=== PATIENT | female | born 1995 | race Caucasian/White ===

== ENCOUNTER 2021-08-16 17:12 | Emergency (ER) | payer OTHER, SELFPAY ==
[2021-08-16 17:28] VITALS: BP 128/88; PULSE 80; RESP 16; TEMP 36.9; O2SAT 98
--- NOTE | 2021-08-16 17:53 | ED.URI ---
HPI - URI/Sore Throat General Chief Complaint: Upper Respiratory Infection Stated Complaint: Cough/Chest Congestion Time Seen by Provider: 08/16/21 17:53 Source: patient History of Present Illness HPI Narrative: patient presents with cough and chest congestion. no shortness of breath and no chest pain. Patient reprots using her sones nebulizer treatment at home for cough and chest congestion. Patient states her symptoms started after she took her children trick or treating. no fever no uri symptoms. MD elicited complaint: cough Related Data Allergies Allergy/AdvReac Type Severity Reaction Status Date / Time No Known Allergies Allergy Verified 08/16/21 17:31 Review of Systems Review of Systems: CONSTITUTIONAL: Denies fever, chills, or sweats. EYES: Denies visual changes, redness, or discharge. ENT: Denies rhinorrhea, congestion, sore throat, or otalgia. CARDIOVASCULAR: Denies chest pain, palpitations, or edema. RESPIRATORY: Denies cough or dyspnea. GASTROINTESTINAL: Denies abdominal pain, nausea, vomiting, or diarrhea. GENITOURINARY: Denies dysuria or hematuria. SKIN: Denies rash or itching. MUSCULOSKELETAL: Denies back pain, joint pain, or myalgia. NEUROLOGIC: Denies headache, numbness, or weakness. PSYCHIATRIC: Denies anxiety or depression. PMFSH Comments At time of signature, agree with nursing past medical, surgical, social and family history. There is no relevant family history pertinent to the presenting complaint Exam Narrative: GENERAL: Well-appearing, well-nourished, and in no acute distress. HEAD: Normocephalic, atraumatic. EYES: PERRLA and EOMI. ENT: Nares clear, no rhinorrhea or epistaxis. Mucous membranes moist. NECK: Supple. CHEST: Clear to auscultation. No respiratory distress. HEART: Regular rate and rhythm. No murmur heard. Normal peripheral pulses. ABDOMEN: Soft, nontender, nondistended, normal active bowel sounds. EXTREMITIES: Normal range of motion. No edema. SKIN: Warm, dry, no rash. NEURO: No focal deficits. Alert and oriented x3. Kim Coma Scale Eye Opening: Spontaneous 4 [employer] Coma Scale Motor: Obeys Commands 6 Kim Coma Scale Verbal: Oriented 5 Kim Coma Scale Total 15 Course Vital Signs Vital signs: Vital Signs Temperature 36.9 C 11/06/21 17:28 Pulse Rate 80 08/16/21 17:28 Respiratory Rate 16 08/16/21 17:28 Blood Pressure 128/88 08/16/21 17:28 Pulse Oximetry 98 08/16/21 17:28 Temperature 36.9 C 08/16/21 17:28 Pulse Rate 80 08/16/21 17:28 Respiratory Rate 16 08/16/21 17:28 Blood Pressure 128/88 08/16/21 17:28 Pulse Oximetry 98 08/16/21 17:28 patient feels much better after nebulizer treatment. good breath sound sthroughout MDM - URI/Sore Throat Differential Diagnosis Differential diagnosis: Likely upper respiratory infection, croup, otitis media, sinusitis, viral infection, bronchitis, influenza and pharyngitis Critical Care Time Critical Care Time Critical Care Time: No Discharge Plan Discharge Clinical Impression: Bronchitis Patient Disposition: Home, Self-Care Condition: Stable Instructions: Antibiotic Form, Acute Bronchitis (ED) Additional Instructions: Increase fluids and rest 1. Bronchitis will generally resolve on it's own and may take a few weeks. Bronchitis is usually caused by a virus, but sometimes it may be bacterial. Antibiotics generally do not help bronchitis go away faster. Yellow or green mucous, does not always mean bacterial. If you are prescribed an antibiotic for your symptoms be sure to take the entire course of antibioitics. Take with food. It is also suggested to take with yogurt or a probiotic to decrease GI side effects. You may also be prescribed a steroid, if so, be sure to take entire course, first thing in the morning with food. 2. Rest and drink lots of fluids. Maintain a good diet, with foods rich in vitamins and minerals, and lots of fruits and vegetables. 3. Drinking hot tea,
[2021-08-16] MEDS: ALBUTEROL SULFATE NEB 2.5 MG/3 ML INH INHALATION (18:03)
== END 2021-08-16 18:18 | disposition home or self-care (01) ==
PROVIDERS: Emergency Provider Nurse Practitioner Family; PCP Physician Assistant
DX: J40 Bronchitis, not specified as acute or chronic (principal); J45.909 Unspecified asthma, uncomplicated
CPT/HCPCS: 94640; 99213; G0463

== ENCOUNTER 2021-10-12 17:46 | Emergency (ER) | payer OTHER, SELFPAY ==
[2021-10-12 17:54] VITALS: BP 120/72; PULSE 89; RESP 14; TEMP 36.9; O2SAT 100
--- NOTE | 2021-10-12 19:06 | ED.EAR ---
HPI - Ear Problem General Chief complaint: Ear Stated complaint: ear pressure Time Seen by Provider: 10/12/21 19:06 Source: patient, RN notes reviewed and old records reviewed Mode of arrival: ambulatory Limitations: no limitations History of Present Illness HPI Narrative: 25 year old female who prsents to express care with complaints of 3 day history of left ear pressure with decrease hearing. Patient states that she has not had any fevers chills or sweats or any sore throat denies any body aches. Patient reports that she has been taking some Tylenol for her symptoms. Patient has not had COVID or flu vaccinations. MD Complaint: ear pain and decreased hearing Location: left ear Related Data Home Medications Medication Instructions Recorded Confirmed buspirone 15 mg PO DAILY 10/12/21 10/12/21 citalopram 20 mg PO DAILY 10/12/21 10/12/21 risperidone 1 mg PO DAILY 10/12/21 10/12/21 Allergies Allergy/AdvReac Type Severity Reaction Status Date / Time No Known Allergies Allergy Verified 10/12/21 17:57 Review of Systems Review of Systems: CONSTITUTIONAL: Denies fever, chills, or sweats. EYES: Denies visual changes, redness, or discharge. ENT: Denies rhinorrhea, congestion, sore throat, left otalgia. CARDIOVASCULAR: Denies chest pain, palpitations, or edema. RESPIRATORY: Denies cough or dyspnea. GASTROINTESTINAL: Denies abdominal pain, nausea, vomiting, or diarrhea. GENITOURINARY: Denies dysuria or hematuria. SKIN: Denies rash or itching. MUSCULOSKELETAL: Denies back pain, joint pain, or myalgia. NEUROLOGIC: Denies headache, numbness, or weakness. PSYCHIATRIC:Positive for history of anxiety or depression. All systems reviewed & are unremarkable except as noted in HPI and below [facility] Past Medical History Medical History (Updated 10/15/21 @ 07:29 by Graciela Bianchi NP) Anxiety and depression Asthma Bronchitis Surgical History Surgical History (Updated 10/15/21 @ 07:26 by Graciela Bianchi NP) No history of previous surgery Social History Social History (Updated 10/15/21 @ 07:27 by Graciela Bianchi NP) Smoking packs per day: 0.5 Smoking cigarettes per day: 10.0 Years smoked: 10 Smoking pack-years: 5.00 Smoking status: Current every day smoker Tobacco type: cigarettes Alcohol intake: unknown Substance use: unknown Gender identity (if verbalized by the patient): Female Comments At time of signature, agree with nursing past medical, surgical, social and family history. There is no relevant family history pertinent to the presenting complaint Exam Narrative: GENERAL: Well-appearing, well-nourished, and in no acute distress. HEAD: Normocephalic, atraumatic. EYES: PERRLA and EOMI. ENT: Nares clear, no rhinorrhea or epistaxis. Mucous membranes moist.Left TM red and bulging no drainage noted, Right TM normal with good light reflex, throat mild redness no lesions or exudates or tonsil enlargement post nasal drainage noted NECK: Supple.no lymphadenopathy CHEST: Clear to auscultation. No respiratory distress.no cough or any tachypnea noted SAO2 100% on room air HEART: Regular rate and rhythm. No murmur heard. Normal peripheral pulses. ABDOMEN: Soft, nontender, nondistended, normal active bowel sounds. EXTREMITIES: Normal range of motion. No edema. SKIN: Warm, dry, no rash. NEURO: No focal deficits. Alert and oriented x3. Course Course Level of Care: Express Care Visit Vital Signs Vital signs: Vital Signs Temperature 36.9 C 10/12/21 17:54 Pulse Rate 89 10/12/21 17:54 Respiratory Rate 14 10/12/21 17:54 Blood Pressure 120/72 10/12/21 17:54 Pulse Oximetry 100 10/12/21 17:54 Temperature 36.9 C 10/12/21 17:54 Pulse Rate 89 10/12/21 17:54 Respiratory Rate 14 10/12/21 17:54 Blood Pressure 120/72 10/12/21 17:54 Pulse Oximetry 100 10/12/21 17:54 Medical Decision Making Differential Diagnosis Differential Diagnosis: Otitis media, otitis externa, URI, phar
== END 2021-10-12 19:27 | disposition home or self-care (01) ==
PROVIDERS: Emergency Provider Registered Nurse
DX: H65.02 Acute serous otitis media, left ear (principal); F17.210 Nicotine dependence, cigarettes, uncomplicated; F41.9 Anxiety disorder, unspecified; F32.A Depression, unspecified; J45.909 Unspecified asthma, uncomplicated
CPT/HCPCS: 99213; G0463